=== PATIENT | male | born 1980 | race Caucasian/White ===

== ENCOUNTER 2018-05-01 14:01 | Emergency (ER) | payer OTHER ==
[~2018-05-01] VITALS: Ht 175.3 cm; Wt 77.1 kg
[~2018-05-01 14:01] MED LIST: ALEVE220 MG; APAP500; APAP500 PO; BACTRIM DS TAB1 EACH PO; CARISOPRODOL 3350 MG PO; CLEOCIN HCL300 MG PO; DOXYCYCLINE 10100 MG PO; HYDROCODONE-AP1 EAC6 PO; IBUPROFEN 600600 M1 PO; IBUPROFEN 800800 M1; IBUPROFEN 800800 M1 PO; MEDROL DOSPAK21 TA1 PO; MEDROL DOSPAK21 TAB PO; NOHOMEMEDICATIONS; NORCO 5-325 TA1 EACH; NORCO 5-325 TA1 EACH PO; PENICILLIN VK500 M1; PERCOCET 5-3251 EACH PO; PHENADOZ25 MG RC; TRAMADOL 50 MG50 MG PO; VALIUM5 MG PO; ZOFRAN ODT4 MG PO
[2018-05-01] MEDS ORDERED: ACETAMINOPHEN-1 EAC1 PO (15:29)
[2018-05-01] MEDS ORDERED: MEDROLDOSEPACK PO (15:29)
[2018-05-01] MEDS ORDERED: NAPROSYN500 MG PO (15:29)
[2018-05-01 15:40] VITALS: BP 139/79
== END 2018-05-01 15:41 | disposition home or self-care (01) ==
LOC: M.ERS 14:01
DX: M25.551 Pain in right hip (principal)

== ENCOUNTER 2020-05-21 13:51 | Emergency (ER) | payer OTHER ==
[~2020-05-21] VITALS: Ht 175.3 cm; Wt 68.0 kg
[~2020-05-21 13:51] MED LIST changes: +ACETAMINOPHEN-1 EAC1 PO; +MEDROLDOSEPACK PO; +NAPROSYN500 MG PO
[2020-05-21] MEDS ORDERED: HYDROCODON-ACE1 EAC7 PO (14:24)
[2020-05-21] MEDS ORDERED: KEFLEX500 M1 PO (14:24)
[2020-05-21] MEDS ORDERED: CIPROFLOXIN HC2.5 M1 OTIC (14:24)
[2020-05-21 14:36] VITALS: BP 119/74
== END 2020-05-21 14:36 | disposition home or self-care (01) ==
LOC: M.ERS 13:51
DX: H60.92 Unspecified otitis externa, left ear (principal); F17.210 Nicotine dependence, cigarettes, uncomplicated